=== PATIENT | female | born 1955 | race Caucasian/White ===

== ENCOUNTER 2020-07-19 12:21 | Observation (INO) | payer MEDICARE, OTHER ==
[2020-07-19 13:04] LABS: #Monocytes 0.4 10x3/uL (0.0-1.1); #Neutrophils 4.9 10x3/uL (1.5-8.4); %Basophils 0.3 % (0.0-2.0); %Eosinophils 0.4 % (0.0-6.0); %Monocytes 4.7 % (0.0-10.0); %Neutrophils 64.3 % (40.0-75.0); Hemoglobin 16.2 g/dL (12.0-15.5); Mean Corpuscular Hemoglobin 29.3 pg (27.0-33.0); Mean Corpuscular Volume 91.5 fl (81.6-98.3); Mean Platelet Volume 9.1 fl (7.4-10.4); Platelet Count 291 10x3/uL (150-450); RBC Distribution Width 12.6 % (11.5-14.5); Red Blood Cell (RBC) Count 5.53 10x6/uL (3.90-5.03); White Blood Cell (WBC) Count 7.6 10x3/uL (3.5-10.5)
[2020-07-19 13:18] LABS: ALT (SGPT) 17 U/L (8-55); AST (SGOT) 27 U/L (5-34); Albumin 4.4 g/dL (3.4-4.8); Alkaline Phosphatase 200 U/L (40-110); Anion Gap 16 mmol/L (10-20); BUN (Urea Nitrogen) 9 mg/dL (9.8-20.1); Bilirubin, Total 0.4 mg/dL (0.2-1.2); CK (CPK) 42 U/L (29-168); Calc. Creatinine Clearance 0 mL/min (70-130); Calcium 10.2 mg/dL (7.8-10.44); Carbon Dioxide 23 mmol/L (23-31); Chloride 103 mmol/L (98-107); Globulin 3.8 g/dL (2.4-3.5); Glucose 88 mg/dL (80-115); Lipase 12 U/L (8-78); Potassium 4.6 mmol/L (3.5-5.1); Protein, Total 8.2 g/dL (5.8-8.1); Sodium 137 mmol/L (136-145)
[2020-07-19] MEDS ORDERED: Acetaminophen 325 MG TAB PO PRN (14:32)
[2020-07-19] MEDS ORDERED: Nitroglycerin 2% Ointment 1 INCH/1 GM Packet ONE (14:32)
[2020-07-19] MEDS ORDERED: Albuterol Sulfate 2.5 mg/3 ml Neb NEB PRN (15:03)
[2020-07-19 16:37] LABS: Troponin I Less than 0.010 ng/mL (< 0.028)
[2020-07-19 16:53] VITALS: BMI 33.8
[2020-07-19 20:58] LABS: Troponin I Less than 0.010 ng/mL (< 0.028)
[2020-07-19] MEDS ORDERED: Atorvastatin Calcium 20 MG TAB PO SCH (21:00)
[2020-07-20 01:28] LABS: SARS-CoV-2 PCR by NAA Not Detected (NotDetected)
[2020-07-20 06:09] LABS: #Eosinphils 0.1 10x3/uL (0.0-0.5); #Monocytes 0.4 10x3/uL (0.0-1.1); #Neutrophils 2.8 10x3/uL (1.5-8.4); %Basophils 0.5 % (0.0-2.0); %Eosinophils 1.3 % (0.0-6.0); %Monocytes 7.1 % (0.0-10.0); %Neutrophils 50.7 % (40.0-75.0); Hemoglobin 13.7 g/dL (12.0-15.5); Mean Corpuscular HGB CONC 33.3 g/dL (32.0-36.0); Mean Corpuscular Hemoglobin 29.5 pg (27.0-33.0); Mean Corpuscular Volume 88.8 fl (81.6-98.3); Mean Platelet Volume 9.1 fl (7.4-10.4); Platelet Count 253 10x3/uL (150-450); Red Blood Cell (RBC) Count 4.64 10x6/uL (3.90-5.03); White Blood Cell (WBC) Count 5.5 10x3/uL (3.5-10.5)
[2020-07-20 06:22] LABS: Anion Gap 14 mmol/L (10-20); BUN (Urea Nitrogen) 11 mg/dL (9.8-20.1); Calc. Creatinine Clearance 124 mL/min (70-130); Calcium 9.4 mg/dL (7.8-10.44); Carbon Dioxide 23 mmol/L (23-31); Chloride 107 mmol/L (98-107); Glucose 94 mg/dL (80-115); Potassium 4.1 mmol/L (3.5-5.1); Sodium 140 mmol/L (136-145)
[2020-07-20] MEDS ORDERED: Enoxaparin Sodium 40 MG/0.4 ML SYRINGE SC SCH (09:00)
[2020-07-20] MEDS ORDERED: Aspirin 81 mg Enteric Coated Tablet PO SCH (09:00)
[2020-07-20 13:07] VITALS: BP 108/59; TEMP 99.1
== END 2020-07-20 13:16 | disposition home or self-care (01) ==
LOC: CSHERS 12:21 → CSHTELE 16:15
PROVIDERS: ADMIT Internal Medicine; ATTEND Hospitalist
DX: R07.89 Other chest pain (principal); E78.5 Hyperlipidemia, unspecified; Z79.899 Other long term (current) drug therapy; Z79.82 Long term (current) use of aspirin; Z90.49 Acquired absence of other specified parts of digestive tract; Z20.822 Contact with and (suspected) exposure to COVID-19
CPT/HCPCS: 71045; 80048; 80053; 82550; 83690; 84484 ×2; 85025 ×2; 85379; 93005; 96372; 99285; G0378 ×3; U0003; U0005; 36415; 87635; J1650

== ENCOUNTER 2021-02-12 08:40 | Outpatient (CLI) | payer MEDICARE, OTHER | END 2021-02-12 08:41 | disposition home or self-care (01) | LOC: CSHCT 08:40 | PROVIDERS: ATTEND Family Medicine Sports Medicine | DX: Z12.2 Encounter for screening for malignant neoplasm of respiratory organs (principal); F17.210 Nicotine dependence, cigarettes, uncomplicated | CPT/HCPCS: 71271 ==

== ENCOUNTER 2022-04-14 07:59 | Outpatient (CLI) | payer MEDICARE, OTHER ==
[2022-04-14] MEDS ORDERED: Iopamidol 300 61% 100 ML VIAL FS ONE (08:12)
== END 2022-04-14 08:00 | disposition home or self-care (01) ==
LOC: CSHCT 07:59
PROVIDERS: ATTEND Physician Assistant Medical
DX: R10.32 Left lower quadrant pain (principal); R10.2 Pelvic and perineal pain; K63.9 Disease of intestine, unspecified
CPT/HCPCS: 74177

== ENCOUNTER 2023-06-04 14:05 | Outpatient (CLI) | payer MEDICARE, OTHER | END 2023-06-04 14:06 | disposition home or self-care (01) | LOC: CSHMAMMO 14:05 | PROVIDERS: ATTEND Family Medicine Sports Medicine | DX: Z12.31 Encounter for screening mammogram for malignant neoplasm of breast (principal); Z13.820 Encounter for screening for osteoporosis; M81.0 Age-related osteoporosis without current pathological fracture; Z78.0 Asymptomatic menopausal state | CPT/HCPCS: 77063; 77067; 77080 ==

== ENCOUNTER 2023-08-12 11:59 | Outpatient (CLI) | payer MEDICARE, OTHER | END 2023-08-12 12:00 | disposition home or self-care (01) | LOC: CSHRAD 11:59 | PROVIDERS: ATTEND Family Medicine Sports Medicine | DX: R07.89 Other chest pain (principal) | CPT/HCPCS: 71046 ==

== ENCOUNTER 2023-09-10 10:20 | Emergency (ER) | payer MEDICARE, OTHER ==
[2023-09-10] MEDS ORDERED: Ipratropium/Albuterol 3 ML NEB ONE (10:58)
== END 2023-09-10 12:06 | disposition home or self-care (01) ==
LOC: CSHERS 10:20
DX: J44.89 Other specified chronic obstructive pulmonary disease (principal); F17.210 Nicotine dependence, cigarettes, uncomplicated
CPT/HCPCS: 93005; 93010; J7620

== ENCOUNTER 2023-09-24 09:42 | Outpatient (CLI) | payer MEDICARE, OTHER | END 2023-09-24 09:43 | disposition home or self-care (01) | LOC: CSHCT 09:42 | PROVIDERS: ATTEND Family Medicine Sports Medicine | DX: J44.9 Chronic obstructive pulmonary disease, unspecified (principal); J43.9 Emphysema, unspecified | CPT/HCPCS: 71250 ==

== ENCOUNTER 2023-10-25 09:22 | Emergency (ER) | payer MEDICARE, OTHER ==
[2023-10-25] MEDS ORDERED: Dexamethasone 10 MG/ML VIAL ONE (09:53)
[2023-10-25 09:56] LABS: #Basophils 0.03 10x3/uL (0.0-0.2); #Eosinphils 0.03 10x3/uL (0.0-0.5); #Monocytes 0.44 10x3/uL (0.0-1.1); #Neutrophils 4.77 10x3/uL (1.5-8.4); %Basophils 0.4 % (0.0-2.0); %Eosinophils 0.4 % (0.0-6.0); %Lymphocytes 26.8 % (18.0-47.0); %Monocytes 6.1 % (0.0-10.0); Hematocrit 48.3 % (34.9-44.5); Hemoglobin 16.3 g/dL (12.0-15.5); Mean Corpuscular HGB CONC 33.7 g/dL (32.0-36.0); Mean Corpuscular Hemoglobin 31.5 pg (27.0-33.0); Mean Corpuscular Volume 93.2 fL (81.6-98.3); Mean Platelet Volume 9.1 fL (7.4-10.4); Platelet Count 277 10x3/uL (150-450); RBC Distribution Width 12.3 % (11.5-14.5); Red Blood Cell (RBC) Count 5.18 10x6/uL (3.90-5.03); White Blood Cell (WBC) Count 7.2 10x3/uL (3.5-10.5)
[2023-10-25] MEDS ORDERED: Albuterol 2.5 MG (3 mL) NEB ONE (09:58)
[2023-10-25] MEDS ORDERED: Ipratropium/Albuterol 3 ML NEB ONE (09:58)
[2023-10-25 10:18] LABS: ALT (SGPT) 14 U/L (8-55); AST (SGOT) 23 U/L (5-34); Alkaline Phosphatase 131 U/L (40-110); Anion Gap 15 mmol/L (10-20); BUN (Urea Nitrogen) 10 mg/dL (9.8-20.1); Bilirubin, Total 0.4 mg/dL (0.2-1.2); Calc. Creatinine Clearance 0 mL/min (70-130); Calcium 9.9 mg/dL (7.8-10.44); Carbon Dioxide 24 mmol/L (23-31); Chloride 107 mmol/L (98-107); Estimated GFR 96; Globulin 2.6 g/dL (2.4-3.5); Glucose 111 mg/dL (80-115); Lipase 18 U/L (8-78); Potassium 4.6 mmol/L (3.5-5.1); Protein, Total 6.6 g/dL (5.8-8.1); Sodium 141 mmol/L (136-145)
[2023-10-25 10:19] LABS: Troponin I Less than 0.010 ng/mL (< 0.028)
[2023-10-25 10:45] LABS: Influenza A by NAA Not Detected (NotDetected); Influenza B by NAA Not Detected (NotDetected); SARS-CoV-2 NAA Rapid Test Not Detected (NotDetected)
[2023-10-25] MEDS ORDERED: Ketorolac Tromethamine 30 MG (1 mL) VIAL ONE (11:17)
[2023-10-25 12:06] LABS: Troponin I Less than 0.010 ng/mL (< 0.028)
== END 2023-10-25 13:10 | disposition home or self-care (01) ==
LOC: CSHERS 09:22
DX: R07.89 Other chest pain (principal); R06.02 Shortness of breath; J44.9 Chronic obstructive pulmonary disease, unspecified; F17.210 Nicotine dependence, cigarettes, uncomplicated; Z55.6 Problems related to health literacy
CPT/HCPCS: 0240U; 71045; 80053; 83690; 84484 ×2; 85025; 85379; 93005; J1100; J1885; 96372; J7611; J7620

== ENCOUNTER 2024-03-30 10:26 | Emergency (ER) | payer MEDICARE, OTHER ==
[~2024-03-30 10:26] MED LIST: Iopamidol 370 76% 100 ML VIAL ONE
[2024-03-30 11:33] LABS: #Basophils 0.02 10x3/uL (0.0-0.2); #Eosinophils 0.03 10x3/uL (0.0-0.5); #Monocytes 0.72 10x3/uL (0.0-1.1); #Neutrophils 4.46 10x3/uL (1.5-8.4); %Basophils 0.3 % (0.0-2.0); %Eosinophils 0.4 % (0.0-6.0); %Lymphocytes 28.4 % (18.0-47.0); %Monocytes 9.8 % (0.0-10.0); Hematocrit 42.3 % (34.9-44.5); Hemoglobin 13.5 g/dL (12.0-15.5); Mean Corpuscular HGB CONC 31.9 g/dL (32.0-36.0); Mean Corpuscular Hemoglobin 29.6 pg (27.0-33.0); Mean Corpuscular Volume 92.8 fL (81.6-98.3); Mean Platelet Volume 8.9 fL (7.4-10.4); Platelet Count 286 10x3/uL (150-450); RBC Distribution Width 11.9 % (11.5-14.5); Red Blood Cell (RBC) Count 4.56 10x6/uL (3.90-5.03); White Blood Cell (WBC) Count 7.3 10x3/uL (3.5-10.5)
[2024-03-30 11:58] LABS: ALT (SGPT) 15 U/L (8-55); AST (SGOT) 18 U/L (5-34); Albumin 3.7 g/dL (3.4-4.8); Alkaline Phosphatase 148 U/L (40-110); Anion Gap 15 mmol/L (10-20); BUN (Urea Nitrogen) 18 mg/dL (9.8-20.1); Bilirubin, Total 0.3 mg/dL (0.2-1.2); Calc. Creatinine Clearance 0 mL/min (70-130); Calcium 9.5 mg/dL (7.8-10.44); Carbon Dioxide 22 mmol/L (23-31); Chloride 108 mmol/L (98-107); Estimated GFR 96; Globulin 2.5 g/dL (2.4-3.5); Glucose 91 mg/dL (80-115); Potassium 4.6 mmol/L (3.5-5.1); Protein, Total 6.2 g/dL (5.8-8.1); Sodium 140 mmol/L (136-145)
[2024-03-30 12:01] LABS: Troponin I Less than 0.010 ng/mL (< 0.028)
[2024-03-30] MEDS ORDERED: Meclizine HCl 25 MG TAB ONE (12:35)
[2024-03-30 13:19] LABS: PTT 24.4 sec (22.0-33.0); Prothrombin Time 10.7 sec (9.5-12.1)
[2024-03-30 14:35] LABS: Bilirubin Neg (Negative); Blood, Urine 10 (Negative); Clarity Clear (Clear); Glucose, Urine (Dipstick) Normal (Negative); Ketone, Urine Negative (Negative); Leukocyte 25 (Negative); Nitrite Negative (Negative); Protein, Urine (Dipstick) Negative (Neg-Trace); Specific Gravity, Urine 1.005 (1.005-1.030); Urobilinogen Normal mg/dL (Less than 2)
[2024-03-30] MEDS ORDERED: Diazepam 5 MG TAB ONE (15:23)
[2024-03-30 15:39] LABS: CAUTI Indications for Culture Alt mental st,lethar; RBC/HPF 0-3 HPF (0-3); WBC/HPF 0-3 HPF (0-3)
[2024-03-30 15:40] LABS: Bacteria/HPF Rare-Few HPF (None Seen); Squamous Epithelial 0-3 HPF (0-3); Transitional Epithelial 0-3 HPF (None Seen)
[2024-03-30 15:42] LABS: Urine Culture Reflex No No
== END 2024-03-30 16:03 ==
LOC: CSHERS 10:26
DX: H65.91 Unspecified nonsuppurative otitis media, right ear (principal); J32.9 Chronic sinusitis, unspecified; R42 Dizziness and giddiness; J44.9 Chronic obstructive pulmonary disease, unspecified; F17.210 Nicotine dependence, cigarettes, uncomplicated; I65.23 Occlusion and stenosis of bilateral carotid arteries; Z86.73 Personal history of transient ischemic attack (TIA), and cerebral infarction without residual deficits
CPT/HCPCS: 70450; 70496; 70498; 80053; 81001; 84484; 85025; 85610; 85730; 93005; 99284; Q9967

== ENCOUNTER 2024-05-01 12:09 | Outpatient (CLI) | payer MEDICARE ==
[2024-05-01 13:00] LABS: Hematocrit 41.4 % (34.9-44.5); Hemoglobin 13.8 g/dL (12.0-15.5)
[2024-05-01 13:27] LABS: Anion Gap 13 mmol/L (10-20); BUN (Urea Nitrogen) 21 mg/dL (9.8-20.1); Calc. Creatinine Clearance 0 mL/min (70-130); Calcium 9.3 mg/dL (7.8-10.44); Carbon Dioxide 22 mmol/L (23-31); Chloride 104 mmol/L (98-107); Estimated GFR 62; Glucose 108 mg/dL (80-115); Potassium 4.5 mmol/L (3.5-5.1); Sodium 134 mmol/L (136-145)
== END 2024-05-01 12:10 | disposition home or self-care (01) ==
LOC: CSHLAB 12:09
PROVIDERS: ATTEND Otolaryngology Plastic Surgery within the Head & Neck
DX: Z01.818 Encounter for other preprocedural examination (principal); J34.3 Hypertrophy of nasal turbinates; J32.8 Other chronic sinusitis
CPT/HCPCS: 80048; 85014; 85018; 93005; 93010

== ENCOUNTER 2024-05-03 06:05 | Day surgery (SDC) | payer MEDICARE ==
[2024-05-01 12:41] VITALS: BMI 33.0
[2024-05-03] MEDS ORDERED: AFRIN NASAL MIST 15 ML BOT ONE ×2 (07:57→08:23)
[2024-05-03] MEDS ORDERED: Dexamethasone 4 mg/ml Vial ONE (08:15)
[2024-05-03] MEDS ORDERED: PROPOFOL 20 ML ONE (08:15)
[2024-05-03] MEDS ORDERED: fentaNYL 50 mcg/mL 1 mL Vial ONE (08:15)
[2024-05-03] MEDS ORDERED: Lidocaine 1% PF 5 ML VIAL ONE (08:15)
[2024-05-03] MEDS ORDERED: Dexamethasone 20 MG/5 ML VIAL ONE (08:15)
[2024-05-03] MEDS ORDERED: Ondansetron PF 4 MG/2 ML Vial ONE (08:15)
[2024-05-03] MEDS ORDERED: Lidocaine 4% PF 5 ML AMP ONE (08:16)
[2024-05-03] MEDS ORDERED: Rocuronium Bromide 10 MG/ML (10ML VIAL) ONE (08:18)
[2024-05-03] MEDS ORDERED: SUGAMMADEX SODIUM 200 MG/2 ML VIAL ONE (08:18)
[2024-05-03] MEDS ORDERED: Lidocaine 1% w/Epinephrine 1:200K 30 ML VIAL ONE (08:23)
[2024-05-03] MEDS ORDERED: PHENYLEPHRINE-NS 100 MCG/ML 10 ML SYRINGE ONE (08:45)
[2024-05-03] MEDS ORDERED: ePHEDrine Sulfate 50 MG/10 ML VIAL ONE (08:46)
[2024-05-03] MEDS ORDERED: Famotidine/PF 20 mg/2ml Vial ONE (09:35)
[2024-05-03] MEDS ORDERED: Hydrocodone-Acetamin 15 ML UDCUP ONE (10:20)
== END 2024-05-03 10:55 | disposition home or self-care (01) ==
LOC: CSHSDC 06:05
PROVIDERS: ATTEND Otolaryngology Plastic Surgery within the Head & Neck
PROC: 09TX8ZZ Resection of Left Sphenoid Sinus, Via Natural or Artificial Opening Endoscopic (ICD-10-PCS; principal; 2024-05-03)
PROC: 09TL8ZZ Resection of Nasal Turbinate, Via Natural or Artificial Opening Endoscopic (ICD-10-PCS; 2024-05-03)
DX: J34.3 Hypertrophy of nasal turbinates (principal); J32.8 Other chronic sinusitis; J34.89 Other specified disorders of nose and nasal sinuses; H91.90 Unspecified hearing loss, unspecified ear; H81.20 Vestibular neuronitis, unspecified ear; J44.9 Chronic obstructive pulmonary disease, unspecified; K21.9 Gastro-esophageal reflux disease without esophagitis; R42 Dizziness and giddiness; Z88.0 Allergy status to penicillin; Z88.1 Allergy status to other antibiotic agents; Z88.5 Allergy status to narcotic agent; Z88.8 Allergy status to other drugs, medicaments and biological substances; Z79.51 Long term (current) use of inhaled steroids; Z79.899 Other long term (current) drug therapy
CPT/HCPCS: 30140; 31288; 61782; J1100; J2405; J2704; J3010; J3490; C1726

== ENCOUNTER 2024-05-05 09:59 | Emergency (ER) | payer MEDICARE ==
[2024-05-05] MEDS ORDERED: Ipratropium/Albuterol 3 ML NEB ONE (11:05)
[2024-05-05] MEDS ORDERED: methylPREDNISolone Sod Succ/PF 125 MG/2 ML VIAL ONE (11:06)
[2024-05-05 11:10] LABS: #Basophils Less than 0.03 10x3/uL (0.0-0.2); #Eosinophils Less than 0.03 10x3/uL (0.0-0.5); #Monocytes 0.34 10x3/uL (0.0-1.1); #Neutrophils 2.32 10x3/uL (1.5-8.4); %Lymphocytes 20.2 % (18.0-47.0); %Monocytes 10.1 % (0.0-10.0); %Neutrophils 69.1 % (40.0-75.0); Mean Corpuscular HGB CONC 32.4 g/dL (32.0-36.0); Mean Corpuscular Hemoglobin 29.3 pg (27.0-33.0); Mean Corpuscular Volume 90.5 fL (81.6-98.3); Mean Platelet Volume 8.9 fL (7.4-10.4); Platelet Count 178 10x3/uL (150-450); RBC Distribution Width 11.7 % (11.5-14.5); Red Blood Cell (RBC) Count 4.09 10x6/uL (3.90-5.03); White Blood Cell (WBC) Count 3.36 10x3/uL (3.5-10.5)
[2024-05-05 11:18] LABS: Troponin I Less than 0.010 ng/mL (< 0.028)
[2024-05-05 11:20] LABS: ALT (SGPT) 15 U/L (Less than 34); AST (SGOT) 22 U/L (11-34); Albumin 3.2 g/dL (3.1-4.5); Alkaline Phosphatase 109 U/L (40-110); Anion Gap 12 mmol/L (10-20); BUN (Urea Nitrogen) 15 mg/dL (9.8-20.1); Bilirubin, Total 0.5 mg/dL (0.3-1.2); Calc. Creatinine Clearance 0 mL/min (70-130); Calcium 8.3 mg/dL (7.8-10.44); Carbon Dioxide 20 mmol/L (23-31); Chloride 106 mmol/L (98-107); Estimated GFR 97; Globulin 2.6 g/dL (2.4-3.5); Glucose 89 mg/dL (80-115); Potassium 4.2 mmol/L (3.5-5.1); Protein, Total 5.8 g/dL (5.8-8.1); Sodium 134 mmol/L (136-145)
== END 2024-05-05 12:03 | disposition home or self-care (01) ==
LOC: CSHERS 09:59
DX: J11.1 Influenza due to unidentified influenza virus with other respiratory manifestations (principal); F17.210 Nicotine dependence, cigarettes, uncomplicated
CPT/HCPCS: 71045; 80053; 83880; 84484; 85025; 87428; 93005; 94640; 96374; 99285; J2919; 36415; J7620

== ENCOUNTER 2025-01-04 16:19 | Emergency (ER) | payer MEDICARE ==
[2025-01-04 19:20] LABS: #Basophils Less than 0.03 10x3/uL (0.0-0.2); #Eosinophils 0.05 10x3/uL (0.0-0.5); #Monocytes 0.54 10x3/uL (0.0-1.1); #Neutrophils 3.49 10x3/uL (1.5-8.4); %Basophils 0.2 % (0.0-2.0); %Eosinophils 0.8 % (0.0-6.0); %Lymphocytes 30.6 % (18.0-47.0); %Monocytes 9.1 % (0.0-10.0); %Neutrophils 59.0 % (40.0-75.0); Hematocrit 39.2 % (34.9-44.5); Hemoglobin 12.3 g/dL (12.0-15.5); Mean Corpuscular Hemoglobin 28.7 pg (27.0-33.0); Mean Corpuscular Volume 91.6 fL (81.6-98.3); Platelet Count 249 10x3/uL (150-450); Red Blood Cell (RBC) Count 4.28 10x6/uL (3.90-5.03); White Blood Cell (WBC) Count 5.92 10x3/uL (3.5-10.5)
[2025-01-04 19:35] LABS: ALT (SGPT) 15 U/L (Less than 34); AST (SGOT) 25 U/L (11-34); Albumin 3.8 g/dL (3.1-4.5); Alkaline Phosphatase 128 U/L (40-110); Anion Gap 12 mmol/L (10-20); BUN (Urea Nitrogen) 15 mg/dL (9.8-20.1); Bilirubin, Total 0.4 mg/dL (0.3-1.2); CK (CPK) 70 U/L (29-168); Calc. Creatinine Clearance 0 mL/min (70-130); Calcium 9.6 mg/dL (7.8-10.44); Carbon Dioxide 28 mmol/L (23-31); Chloride 107 mmol/L (98-107); Globulin 2.5 g/dL (2.4-3.5); Glucose 86 mg/dL (80-115); Potassium 4.5 mmol/L (3.5-5.1); Sodium 142 mmol/L (136-145)
[2025-01-04 19:38] LABS: Troponin I Less than 0.010 ng/mL (< 0.028)
[2025-01-04] MEDS ORDERED: Furosemide 40 MG (4 mL) VIAL ONE (19:39)
== END 2025-01-04 21:34 | disposition home or self-care (01) ==
LOC: CSHERS 16:19
DX: R06.02 Shortness of breath (principal); J44.9 Chronic obstructive pulmonary disease, unspecified; E78.5 Hyperlipidemia, unspecified; F17.210 Nicotine dependence, cigarettes, uncomplicated; Z86.73 Personal history of transient ischemic attack (TIA), and cerebral infarction without residual deficits
CPT/HCPCS: 71045; 73564; 80053; 82550; 83880; 84484; 85025; 85379; 93005; 93970; J1940; 96374

== ENCOUNTER 2025-01-05 09:22 | Observation (INO) | payer MEDICARE ==
[2025-01-05] MEDS ORDERED: Iopamidol 370 76% 100 ML VIAL ONE (09:42)
[2025-01-05] MEDS ORDERED: Furosemide 40 MG (4 mL) VIAL ONE (10:14)
[2025-01-05] MEDS ORDERED: Aspirin Chewable 81 MG TAB ONE (10:15)
[2025-01-05 11:10] LABS: #Basophils Less than 0.03 10x3/uL (0.0-0.2); #Eosinophils 0.03 10x3/uL (0.0-0.5); #Monocytes 0.47 10x3/uL (0.0-1.1); #Neutrophils 4.21 10x3/uL (1.5-8.4); %Basophils 0.2 % (0.0-2.0); %Eosinophils 0.5 % (0.0-6.0); %Lymphocytes 23.7 % (18.0-47.0); %Monocytes 7.6 % (0.0-10.0); %Neutrophils 67.8 % (40.0-75.0); Hematocrit 38.3 % (34.9-44.5); Hemoglobin 12.4 g/dL (12.0-15.5); Mean Corpuscular Hemoglobin 29.0 pg (27.0-33.0); Mean Corpuscular Volume 89.7 fL (81.6-98.3); Platelet Count 231 10x3/uL (150-450); Red Blood Cell (RBC) Count 4.27 10x6/uL (3.90-5.03); White Blood Cell (WBC) Count 6.20 10x3/uL (3.5-10.5)
[2025-01-05 11:27] LABS: ALT (SGPT) 15 U/L (Less than 34); AST (SGOT) 27 U/L (11-34); Albumin 3.8 g/dL (3.1-4.5); Alkaline Phosphatase 136 U/L (40-110); Anion Gap 12 mmol/L (10-20); BUN (Urea Nitrogen) 16 mg/dL (9.8-20.1); Bilirubin, Total 0.6 mg/dL (0.3-1.2); Calc. Creatinine Clearance 0 mL/min (70-130); Calcium 9.3 mg/dL (7.8-10.44); Carbon Dioxide 24 mmol/L (23-31); Chloride 106 mmol/L (98-107); Globulin 2.4 g/dL (2.4-3.5); Glucose 93 mg/dL (80-115); Potassium 4.3 mmol/L (3.5-5.1); Sodium 138 mmol/L (136-145)
[2025-01-05 11:34] LABS: Troponin I Less than 0.010 ng/mL (< 0.028)
[2025-01-05] MEDS ORDERED: Melatonin 3 MG TAB PO PRN (12:14)
[2025-01-05] MEDS ORDERED: Acetaminophen 325 MG TAB PO PRN (12:14)
[2025-01-05] MEDS ORDERED: Ondansetron PF 4 MG/2 ML Vial IVP PRN (12:14)
[2025-01-05] MEDS ORDERED: Senokot S 8.6-50 MG TAB PO PRN (12:14)
[2025-01-05] MEDS ORDERED: Electrolyte Replacement Protocol 1 EACH FS SCH (12:15)
[2025-01-05 12:53] VITALS: BMI 36.0
[2025-01-05] MEDS ORDERED: Albuterol 2.5 MG (3 mL) NEB NEB PRN (13:37)
[2025-01-05] MEDS: Furosemide 40 MG (4 mL) VIAL SLOW IVP SCH (13:52)
[2025-01-05] MEDS: Rosuvastatin 10 MG TAB PO SCH (20:48)
[2025-01-06 04:50] LABS: #Basophils Less than 0.03 10x3/uL (0.0-0.2); #Eosinophils 0.05 10x3/uL (0.0-0.5); #Monocytes 0.49 10x3/uL (0.0-1.1); #Neutrophils 3.35 10x3/uL (1.5-8.4); %Basophils 0.2 % (0.0-2.0); %Eosinophils 0.9 % (0.0-6.0); %Lymphocytes 26.2 % (18.0-47.0); %Monocytes 9.2 % (0.0-10.0); %Neutrophils 63.3 % (40.0-75.0); Hematocrit 39.2 % (34.9-44.5); Hemoglobin 13.0 g/dL (12.0-15.5); Mean Corpuscular Hemoglobin 29.6 pg (27.0-33.0); Mean Corpuscular Volume 89.3 fL (81.6-98.3); Platelet Count 270 10x3/uL (150-450); Red Blood Cell (RBC) Count 4.39 10x6/uL (3.90-5.03); White Blood Cell (WBC) Count 5.30 10x3/uL (3.5-10.5)
[2025-01-06 05:23] LABS: ALT (SGPT) 15 U/L (Less than 34); AST (SGOT) 28 U/L (11-34); Albumin 3.7 g/dL (3.1-4.5); Alkaline Phosphatase 127 U/L (40-110); Anion Gap 15 mmol/L (10-20); BUN (Urea Nitrogen) 26 mg/dL (9.8-20.1); Bilirubin, Total 0.4 mg/dL (0.3-1.2); Calc. Creatinine Clearance 107 mL/min (70-130); Calcium 10.0 mg/dL (7.8-10.44); Carbon Dioxide 27 mmol/L (23-31); Chloride 102 mmol/L (98-107); Globulin 3.1 g/dL (2.4-3.5); Glucose 110 mg/dL (80-115); Magnesium 2.2 mg/dL (1.6-2.6); Potassium 4.5 mmol/L (3.5-5.1); Sodium 139 mmol/L (136-145)
[2025-01-06] MEDS: Enoxaparin 40 MG (0.4 mL) SYRINGE SC SCH (09:09)
[2025-01-06] MEDS ORDERED: Iopamidol 300 61% 100 ML VIAL FS ONE (10:13)
[2025-01-06 13:06] VITALS: BP 110/62; TEMP 98.2
[2025-01-07] MEDS ORDERED: Furosemide 20 MG TAB PO SCH (09:00)
[2025-01-12] MEDS ORDERED: Ergocalciferol 1.25 MG(50,000 UNITS) CAP PO SCH (09:00)
== END 2025-01-06 15:56 | disposition home or self-care (01) ==
LOC: CSHERS 09:22 → CSHTELE 10:27
PROVIDERS: ADMIT Student in an Organized Health Care Education/Training Program; ATTEND Student in an Organized Health Care Education/Training Program
PROC: B24BZZZ Ultrasonography of Heart with Aorta (ICD-10-PCS; principal; 2025-01-05)
DX: I50.31 Acute diastolic (congestive) heart failure (principal); E78.5 Hyperlipidemia, unspecified; E55.9 Vitamin D deficiency, unspecified; J44.9 Chronic obstructive pulmonary disease, unspecified; K59.00 Constipation, unspecified; Z87.891 Personal history of nicotine dependence; Z90.49 Acquired absence of other specified parts of digestive tract; Z90.710 Acquired absence of both cervix and uterus; Z98.890 Other specified postprocedural states; Z88.0 Allergy status to penicillin; Z88.1 Allergy status to other antibiotic agents; Z88.8 Allergy status to other drugs, medicaments and biological substances; Z88.2 Allergy status to sulfonamides; Z79.51 Long term (current) use of inhaled steroids
CPT/HCPCS: 71045; 71275; 74178; 80053; 83735; 83880; 84100; 84156; 84484; 85025; 93005; 93306; 94640; 94760; 96372; 96374; 96376 ×2; 99285; G0378 ×3; J1650; J1940 ×2; Q9967 ×2; 36415; 84443; 93010

== ENCOUNTER 2025-03-07 07:47 | Outpatient (CLI) | payer MEDICARE ==
[2025-03-07 11:20] LABS: Hematocrit 44.5 % (34.9-44.5); Hemoglobin 14.4 g/dL (12.0-15.5)
[2025-03-07 11:39] LABS: Anion Gap 17 mmol/L (10-20); BUN (Urea Nitrogen) 15 mg/dL (9.8-20.1); Calc. Creatinine Clearance 0 mL/min (70-130); Calcium 9.8 mg/dL (7.8-10.44); Carbon Dioxide 19 mmol/L (23-31); Chloride 107 mmol/L (98-107); Glucose 101 mg/dL (80-115); Potassium 5.1 mmol/L (3.5-5.1); Sodium 138 mmol/L (136-145)
== END 2025-03-07 07:48 | disposition home or self-care (01) ==
LOC: CSHLAB 07:47
PROVIDERS: ATTEND Otolaryngology Otolaryngic Allergy
DX: Z01.812 Encounter for preprocedural laboratory examination (principal); J32.3 Chronic sphenoidal sinusitis
CPT/HCPCS: 80048; 85014; 85018